=== PATIENT | male | born 1950 | race Caucasian/White ===

== ENCOUNTER 2016-11-07 01:25 | Inpatient (IN) | payer MEDICARE, OTHER ==
[~2016-11-07] VITALS: Ht 180.3 cm; Wt 93.0 kg
[2016-11-07] VITALS (14 sets, daily range): BP systolic 119–159; BP diastolic 72–100; PULSE 98–133; RESP 18–26; TEMP 97.7–98.8; O2SAT 90–96
[~2016-11-07 01:25] MED LIST: ALBU8I INH; AZIT250T74 PO; FLOV44AE IN; LISI-363 PO; NICO21T T-DERMAL; PRED20 PO; Z.0.OXYGENDME NC
--- NOTE | 2016-11-07 01:41 | PD ---
HPI . Respiratory distress Chief Complaint: Respiratory Distress Time Seen by Provider: 01:34 Travel History International Travel<30 days: No Contact w/Intl Traveler<30days: No Traveled to known affect area: No History of Present Illness HPI This patient presents to us by EVAC with the chief complaint of respiratory distress. Onset of symptoms was about noon time. EMS reports that his sats were in the 70s when they got there. He is on home oxygen. He also uses a home nebulizer machine but is out of nebulizer solution. He has been using his MDI. In addition to the shortness of breath, he has green sputum production. He has not been running a fever. He denies any previous history of CHF. [facility] Past Medical History Cardiovascular Problems: Yes COPD: Yes Diminished Hearing: No Hypertension: Yes Musculoskeletal: No Neurologic: No Respiratory: Yes (COPD) Past Surgical History Tonsillectomy: Yes Other Surgery: Yes (SKIN CANCER REMOVED LEFT CHEST) Social History Alcohol Use: Yes (4-5 TIMES PER WEEK, COUPLE MIXED DRINKS) Tobacco Use: Yes (1 / PPD) Substance Use: No Allergies-Medications (Allergen,Severity, Reaction): Coded Allergies: No Known Allergies (Unverified , 10/23/14) Reported Meds & Prescriptions Reported Meds & Active Scripts Active Reported Duoneb (Ipratropium-Albuterol Neb) 0.5-2.5 Mg/3 Ml Neb 1 Nebule INH Q4HR NEB Ventolin Hfa 18 GM Inh (Albuterol Sulfate) 90 Mcg/Act Aer 2 Puff INH Q4-6H PRN Lisinopril 20 Mg Tab 20 Mg PO DAILY Review of Systems Except as stated in HPI: all other systems reviewed are Neg General / Constitutional: No: Fever, Chills Respiratory: Positive: Cough, Shortness of Breath, Wheezing Physical Exam Narrative GENERAL: Awake and alert. SKIN: warm/dry. HEAD: Normocephalic. EYES: Pupils equal and round. No scleral icterus. No injection or drainage. ENT: No nasal bleeding or discharge. Mucous membranes pink and moist. NECK: Trachea midline. Full range of motion without pain.. CARDIOVASCULAR: Regular rate and rhythm. RESPIRATORY: Positive accessory muscle use. Diffuse inspiratory/expiratory wheezing. Very diminished breath sounds. GASTROINTESTINAL: Abdomen soft. Nontender. Bowel sounds present. Nondistended. MUSCULOSKELETAL: No obvious deformities. NEUROLOGICAL: Awake and alert. No obvious cranial nerve deficits. Motor grossly within normal limits. Normal speech. PSYCHIATRIC: Appropriate mood and affect; insight and judgment normal. Data Data Last Documented VS Vital Signs Date Time Temp Pulse Resp B/P (MAP) Pulse Ox O2 Delivery O2 Flow Rate FiO2 11/07/16 01:41 98.7 124 24 150/88 (108) 96 Nasal Cannula 2.00 Orders Orders Complete Blood Count With Diff (11/07/16 01:34) Basic Metabolic Panel (Bmp) (11/07/16 01:34) B-Type Natriuretic Peptide (11/07/16 01:34) Troponin I (11/07/16 01:34) Iv Access Insert/Monitor (11/07/16 01:34) Electrocardiogram (11/07/16 01:34) Ecg Monitoring (11/07/16 01:34) Oximetry (11/07/16 01:34) Oxygen Administration (11/07/16 01:34) Chest, Single Ap (11/07/16 01:34) Sodium Chloride 0.9% Flush (Ns Flush) (11/07/16 01:45) Albuterol-Ipratropium Neb (Duoneb Neb) (11/07/16 01:45) Ondansetron Inj (Zofran Inj) (11/07/16 02:00) Ondansetron Inj (Zofran Inj) (11/07/16 01:50) Albuterol-Ipratropium Neb (Duoneb Neb) (11/07/16 02:30) Ceftriaxone Inj (Rocephin Inj) (11/07/16 02:45) Azithromycin Inj (Zithromax Inj) (11/07/16 02:45) Place In Observation (11/07/16 ) Vital Signs (Adult) Q4H (11/07/16 02:52) Activity Oob With Assistance (11/07/16 02:52) Overhead Garage Door Hanger / Telemetry .CONTINUOUS (11/07/16 02:52) Diet Heart Healthy (11/07/16 Breakfast) Sodium Chloride 0.9% Flush (Ns Flush) (11/07/16 03:00) Sodium Chloride 0.9% Flush (Ns Flush) (11/07/16 09:00) Basic Metabolic Panel (Bmp) (11/08/16 06:00) Complete Blood Count With Diff (11/08/16 06:00) Pt Request For Service (11/07/16 02:52) Case Management Consult (11/07/16 02:52) Naloxone Inj (Narcan Inj) (11/07/16 03:00) Ipratropium Neb (Atrovent Neb) (11/07/16 04:00) Ipratropium Neb (Atrovent Neb) (11/07/16 03:00) Labs Laboratory Tests Test 11/07/16 01:40 White Blood Count 12.9 TH/MM3 Red Blood Count 4.61 MIL/MM3 Hemoglobin 16.8 GM/DL Hematocrit 49.2 % Mean Corpuscular Volume 106.7 FL Mean Corpuscular Hemoglobin 36.4 PG Mean Corpuscular Hemoglobin Concent 34.1 % Red Cell Distribution Width 13.9 % Platelet Count 171 TH/MM3 Mean Platelet Volume 8.6 FL Neutrophils (%) (Auto) 76.8 % Lymphocytes (%) (Auto) 14.5 % Monocytes (%) (Auto) 7.4 % Eosinophils (%) (Auto) 0.9 % Basophils (%) (Auto) 0.4 % Neutrophils # (Auto) 9.9 TH/MM3 Lymphocytes # (Auto) 1.9 TH/MM3 Monocytes # (Auto) 1.0 TH/MM3 Eosinophils # (Auto) 0.1 TH/MM3 Basophils # (Auto) 0.0 TH/MM3 CBC Comment AUTO DIFF Differential Comment AUTO DIFF CONFIRMED Blood Urea Nitrogen 9 MG/DL Creatinine 0.78 MG/DL Random Glucose 148 MG/DL Calcium Level 8.9 MG/DL Sodium Level 129 MEQ/L Potassium Level 4.3 MEQ/L Chloride Level 93 MEQ/L Carbon Dioxide Level 27.4 MEQ/L Anion Gap 9 MEQ/L Estimat Glomerular Filtration Rate 100 ML/MIN Troponin I LESS THAN 0.02 NG/ML B-Type Natriuretic Peptide 107 PG/ML MDM Medical Decision Making Medical Screen Exam Complete: Yes Emergency Medical Condition: Yes Medical Record Reviewed: Yes (medical history of hypertension and COPD. No history of CHF. He is oxygen dependent.) Differential Diagnosis Differential diagnosis of dyspnea includes but is not limited to congestive heart failure, pneumonia, wheezing, pneumothorax, pulmonary embolism Narrative Course This patient presents with the chief complaint of dyspnea. History of COPD. Lungs sound very tight. He was treated en route with Solu-Medrol and one nebulizer treatment. Last Impressions Chest X-Ray 11/07/16 0134 Signed Impressions: Service Date/Time: Monday, November 07, 2016 02:06 - CONCLUSION: 1. Subsegmental airspace disease in the perihilar regions bilaterally. Differential diagnosis includes focal infection or atelectasis and scarring. Followup recommended to assess for clearing. Remote left rib fractures. Jay Membreno MD The chest x-ray was independently viewed by me. Rocephin and Zithromax have subsequently been ordered. CBC & BMP Diagram 11/07/16 01:40 Calcium Level 8.9 Troponin less than 0.02. The patient is improved but not enough for discharge. Diagnosis Primary Impression: COPD (chronic obstructive pulmonary disease) Qualified Codes: J44.1 - Chronic obstructive pulmonary disease with (acute) exacerbation Admitting Information Admitting Physician Requests: Admit Condition: Stable Treasure Hair MD Nov 07, 2016 01:41
[2016-11-07] MEDS ORDERED: IPRASOL INH (01:45)
[2016-11-07] MEDS ORDERED: SODIUM CHLORIDE 0.9% FLUSH 10 ML FLUSH IVF PRN (01:45)
[2016-11-07] MEDS ORDERED: LISI-515 PO (01:45)
[2016-11-07] MEDS ORDERED: VENTAER INH (01:45)
[2016-11-07] MEDS: RESP: ALBUTEROL 2.5 MG/IPRATROPIUM 0.5 MG NEB (SCH) INH ×3 (01:49→02:39)
[2016-11-07] MEDS ORDERED: ONDANSETRON HCL 4 MG/2 ML VIAL ONE (01:50)
[2016-11-07 01:56] LABS: AUTOMATED NEUTROPHIL # 9.9 TH/MM3 (1.8-7.7); BASOPHIL % 0.4 % (0.0-2.0); EOSINOPHIL # 0.1 TH/MM3 (0-0.4); EOSINOPHIL % 0.9 % (0.0-4.0); HEMATOCRIT 49.2 % (39.0-51.0); LYMPH % 14.5 % (9.0-44.0); LYMPHOCYTE # 1.9 TH/MM3 (1.0-4.8); MEAN CELL VOLUME 106.7 FL (80.0-100.0); MEAN CORPUSCULAR HEMOGLOBIN 36.4 PG (27.0-34.0); MEAN CORPUSCULAR HGB CONC 34.1 % (32.0-36.0); MONO % 7.4 % (0.0-8.0); NEUT % 76.8 % (16.0-70.0); PLATELET COUNT 171 TH/MM3 (150-450); RED BLOOD COUNT 4.61 MIL/MM3 (4.50-5.90); RED CELL DISTRIBUTION WIDTH 13.9 % (11.6-17.2); WHITE BLOOD COUNT 12.9 TH/MM3 (4.0-11.0)
[2016-11-07] MEDS ORDERED: ONDANSETRON HCL 4 MG/2 ML VIAL IV PUSH ONE (02:00)
[2016-11-07 02:08] LABS: HEMO FLAGS AUTO DIFF
--- NOTE | 2016-11-07 02:16 | RADRPT ---
EXAM DATE/TIME: 11/07/2016 02:06 [place] COMPARISON: CHEST SINGLE AP, October 23, 2014, 14:30. INDICATIONS : Short of breath. MEDICAL HISTORY : None. SURGICAL HISTORY : None. ENCOUNTER: Initial ACUITY: 2 days PAIN SCORE: 0/10 LOCATION: Bilateral chest FINDINGS: A single view of the chest demonstrates subsegmental airspace disease in the perihilar region bilater ally. No significant effusion. Remote left rib fractures. No pneumothorax. Heart size normal. CONCLUSION: 1. Subsegmental airspace disease in the perihilar regions bilaterally. Differential diagnosis include s focal infection or atelectasis and scarring. Followup recommended to assess for clearing. Remote le ft rib fractures. Jay Membreno MD on November 07, 2016 at 2:12 Board Certified Radiologist. This report was verified electronically.
[2016-11-07 02:21] LABS: ANION GAP 9 MEQ/L (5-15); BICARBONATE 27.4 MEQ/L (21.0-32.0); BLOOD UREA NITROGEN 9 MG/DL (7-18); CHLORIDE 93 MEQ/L (98-107); GLOMERULAR FILTRATION RATE 100 ML/MIN (>89); POTASSIUM 4.3 MEQ/L (3.5-5.1); SODIUM (NA) 129 MEQ/L (136-145)
[2016-11-07] MEDS ORDERED: AZITHROMYCIN INJ 500 MG in SODIUM CHLOR 0.9% 250 ML INJ 250 ML IV ONE (02:45)
[2016-11-07] MEDS ORDERED: cefTRIAXone INJ 2,000 MG in SODIUM CHLORIDE 0.9% INJ 100 ML IV ONE (02:45)
[2016-11-07] MEDS ORDERED: NALOXONE HCL 0.4 MG/ML AMP IV PRN (03:00)
[2016-11-07] MEDS ORDERED: RESP: IPRATROPIUM 0.5 MG/2.5 ML NEB NEB PRN (03:00)
[2016-11-07] MEDS ORDERED: SODIUM CHLORIDE 0.9% FLUSH 10 ML FLUSH IV FLUSH PRN (03:00)
[2016-11-07 03:32] LABS: SCAN/DIFF AUTO DIFF CONFIRMED
[2016-11-07] MEDS: RESP: IPRATROPIUM 0.5 MG/2.5 ML NEB NEB SCH ×4 (03:35→19:35)
--- NOTE | 2016-11-07 04:03 | HHI.HP ---
[facility] Unknown Admission Diagnosis COPD exacerbation, ? perihilar pneumonia Diagnoses: Travel History International Travel<30 Days: No Contact w/Intl Traveler <30 Da: No Traveled to Known Affected Are: No History of Present Illness History from patient, ER physician, medication, and review of medical records. Patient did that he came to the hospital because he has been short of breath. He stated that it has been going on for a few days but it was terribly worse today. He thought that he was given a time. He states he has been coughing a lot as well and that has been worse than his normal baseline cough. He reports he does have some yellow and green color sputum's. Denies fever. Reports of bilateral ankle swelling once in a while which resolved spontaneously. Not on diuretics at home. Patient is on home oxygen. He denies being on BiPAP at home. Patient reports that he was also having some nausea and vomiting. Vomited once at home and twice here. However states it was mostly mucus and clear color. While I am interviewing him, he did have episodes which are more of coughing up clear or whitish sputum rather than vomiting. He denies any abdominal pains. Denies diarrhea. Denies any melena or hematemesis/hematochezia. Review of Systems Except as stated in HPI: all other systems reviewed are Neg Past Family Social History Past Medical History htn copd seizures when I was 14 skin cancer on chest right side- melanoma- no chemo or radiation Past Surgical History skin cancer removal from chest knee surgery for torn cartilage- bilateral tonsilectomy Allergies: Coded Allergies: No Known Allergies (Unverified , 10/23/14) Family History mother and elder brother- dm Social History trying to cut down- still at 1.5 pack a day drinks etoh about 2-3 cocktails a day Physical Exam Vital Signs Vital Signs Date Time Temp Pulse Resp B/P (MAP) Pulse Ox O2 Delivery O2 Flow Rate FiO2 11/07/16 03:20 116 22 143/89 (107) 93 Aerosol Mask 11/07/16 01:41 98.7 124 24 150/88 (108) 96 Nasal Cannula 2.00 11/07/16 01:39 97 Nasal Cannula 2.00 11/07/16 01:34 96 Aerosol Mask 11/07/16 01:29 133 26 159/100 (119) 94 Physical Exam GENERAL: This is a well-nourished, well-developed patient, in moderate distress from work of breathing SKIN: No rashes, ecchymoses or lesions. Cool and dry. HEAD: Atraumatic. Normocephalic. No temporal or scalp tenderness. EYES: No scleral icterus. No injection or drainage. ENT: Nose without bleeding, purulent drainage or septal hematoma. Airway patent. NECK: Trachea midline. No JVD CARDIOVASCULAR: Regular rate and rhythm without murmurs, gallops, or rubs. Positive JVD. RESPIRATORY: Bilateral expiratory wheezing all throughout the lungs. GASTROINTESTINAL: Abdomen soft, non-tender, nondistended. No guarding. MUSCULOSKELETAL: Extremities without clubbing, cyanosis, or edema. . No calf tenderness. NEUROLOGICAL: Awake and alert. Motor and sensory grossly within normal limits. Normal speech. Laboratory Laboratory Tests Test 11/07/16 01:40 White Blood Count 12.9 Red Blood Count 4.61 Hemoglobin 16.8 Hematocrit 49.2 Mean Corpuscular Volume 106.7 Mean Corpuscular Hemoglobin 36.4 Mean Corpuscular Hemoglobin Concent 34.1 Red Cell Distribution Width 13.9 Platelet Count 171 Mean Platelet Volume 8.6 Neutrophils (%) (Auto) 76.8 Lymphocytes (%) (Auto) 14.5 Monocytes (%) (Auto) 7.4 Eosinophils (%) (Auto) 0.9 Basophils (%) (Auto) 0.4 Neutrophils # (Auto) 9.9 Lymphocytes # (Auto) 1.9 Monocytes # (Auto) 1.0 Eosinophils # (Auto) 0.1 Basophils # (Auto) 0.0 CBC Comment AUTO DIFF Differential Comment AUTO DIFF CONFIRMED Blood Urea Nitrogen 9 Creatinine 0.78 Random Glucose 148 Calcium Level 8.9 Sodium Level 129 Potassium Level 4.3 Chloride Level 93 Carbon Dioxide Level 27.4 Anion Gap 9 Estimat Glomerular Filtration Rate 100 Troponin I LESS THAN 0.02 B-Type Natriuretic Peptide 107 Result Diagram: 11/07/16 0140 11/07/16 0140 Imaging Last 48 hours Impressions Chest X-Ray 11/07/16 0134 Signed Impressions: Service Date/Time: Monday, November 07, 2016 02:06 - CONCLUSION: 1. Subsegmental airspace disease in the perihilar regions bilaterally. Differential diagnosis includes focal infection or atelectasis and scarring. Followup recommended to assess for clearing. Remote left rib fractures. MD Shawna Hendricks VTE Risk Assessment Caprini VTE Risk Assessment: Mod/High Risk (score >= 2) Caprini Risk Assessment Model Point Value = 1 Point Value = 2 Point Value = 3 Point Value = 5 Age 41-60 Minor surgery BMI > 25 kg/m2 Swollen legs Varicose veins or History of unexplained or recurrent spontaneous Oral contraceptives or hormone replacement Sepsis (< 1 month) Serious lung disease, including pneumonia (< 1 month) Abnormal pulmonary function Acute myocardial infarction Congestive heart failure (< 1 month) History of inflammatory bowel disease Medical patient at bed rest Age 61-74 Arthroscopic surgery Major open surgery (> 45 min) Laparoscopic surgery (> 45 min) Malignancy Confined to bed (> 72 hours) Immobilizing plaster cast Central venous access Age >= 75 History of VTE Family history of VTE Factor V Leiden Prothrombin [id number] Lupus anticoagulant Anticardiolipin antibodies Elevated serum homocysteine Heparin-induced thrombocytopenia Other congenital or acquired thrombophilia Stroke (< 1 month) Elective arthroplasty Hip, pelvis, or leg fracture Acute spinal cord injury (< 1 month) Prophylaxis Regimen Total Risk Factor Score Risk Level Prophylaxis Regimen 0-1 Low Early ambulation 2 Moderate Order ONE of the following: *Sequential Compression Device (SCD) *Heparin 5000 units SQ BID 3-4 Higher Order ONE of the following medications: *Heparin 5000 units SQ TID *Enoxaparin/Lovenox 40 mg SQ daily (WT < 150 kg, CrCl > 30 mL/min) *Enoxaparin/Lovenox 30 mg SQ daily (WT < 150 kg, CrCl > 10-29 mL/min) *Enoxaparin/Lovenox 30 mg SQ BID (WT < 150 kg, CrCl > 30 mL/min) AND/OR *Sequential Compression Device (SCD) 5 or more Highest Order ONE of the following medications: *Heparin 5000 units SQ TID (Preferred with Epidurals) *Enoxaparin/Lovenox 40 mg SQ daily (WT < 150 kg, CrCl > 30 mL/min) *Enoxaparin/Lovenox 30 mg SQ daily (WT < 150 kg, CrCl > 10-29 mL/min) *Enoxaparin/Lovenox 30 mg SQ BID (WT < 150 kg, CrCl > 30 mL/min) AND *Sequential Compression Device (SCD) Assessment and Plan Problem List: (1) Pneumonia ICD Code: J18.9 - Pneumonia, unspecified organism (2) Hypoxia ICD Code: R09.02 - Hypoxemia (3) COPD (chronic obstructive pulmonary disease) ICD Code: J44.9 - COPD (chronic obstructive pulmonary disease) Status: Acute Assessment and Plan Impression: COPD exacerbation Hypoxemia- requiring about 5 L nasal cannula in ER with O2 sat around 90%. Patient is chronically on home oxygen. He isn't sure whether it's 2 L or not. Pneumonia Mild leukocytosis with left shift htn copd seizures when I was 14 skin cancer on chest right side- melanoma- no chemo or radiation Plan: Solu-Medrol 40 mg IV every 6 hours. Oxygen supplementation. Patient received Rocephin and azithromycin in ER. We'll switch to Levaquin 750 mg IV every 24 hours. Nebulizers scheduled and when necessary. We'll follow clinically. Resume home meds. DVT prophylaxis - with Lovenox. GI prophylaxis on pantoprazole. Discussed Condition With patient, ER MD, nursing staff Physician Certification 2 Midnight Certification Type: Admission for Inpatient Services Order for Inpatient Services The services are ordered in accordance with Medicare regulations or non- Medicare payer requirements, as applicable. In the case of services not specified as inpatient-only, they are appropriately provided as inpatient services in accordance with the 2-midnight benchmark. Estimated LOS (days): 3 days is the estimated time the patient will need to remain in the hospital, assuming treatment plan goals are met and no additional complications. Post-Hospital Plan: Home Problem Qualifiers (1) COPD (chronic obstructive pulmonary disease): Qualified Codes: J44.1 - Chronic obstructive pulmonary disease with (acute) exacerbation Gracia Lynch MD Nov 07, 2016 04:03
[2016-11-07] MEDS ORDERED: methylPREDNISolone SOD SUCC 125 MG/2 ML VIAL IV PUSH ONE (04:15)
[2016-11-07] MEDS: LEVOFLOXACIN 750 MG PREMIX INJ 150 ML IV SCH (08:47)
[2016-11-07] MEDS: PANTOPRAZOLE SOD 40 MG DELAYED RELEASE TAB PO SCH (08:47)
[2016-11-07] MEDS: SODIUM CHLORIDE 0.9% FLUSH 10 ML FLUSH IV FLUSH SCH ×2 (08:49→20:39)
[2016-11-07] MEDS: ENOXAPARIN SODIUM 40 MG/0.4 ML SYRINGE SQ SCH (08:49)
--- NOTE | 2016-11-07 09:13 | HHI.PR ---
Subjective Remarks Follow up COPD exacerbation. Patient still with dyspnea, wheeze. Reporting neck pain, headache. Objective Vitals Vital Signs Date Time Temp Pulse Resp B/P (MAP) Pulse Ox O2 Delivery O2 Flow Rate FiO2 11/07/16 05:53 98.8 108 18 142/82 (102) 96 11/07/16 05:16 114 22 140/84 (102) 91 3.00 11/07/16 04:33 127 22 149/78 (101) 91 Nasal Cannula 3.00 11/07/16 03:20 116 22 143/89 (107) 93 Aerosol Mask 11/07/16 01:41 98.7 124 24 150/88 (108) 96 Nasal Cannula 2.00 11/07/16 01:39 97 Nasal Cannula 2.00 11/07/16 01:34 96 Aerosol Mask 11/07/16 01:29 133 26 159/100 (119) 94 I/O 11/06/16 11/06/16 11/06/16 11/07/16 11/07/16 11/07/16 07:00 15:00 23:00 07:00 15:00 23:00 Intake Total 100 ml Balance 100 ml Intake IV Total 100 ml Result Diagram: 11/07/16 0140 11/07/16 0140 Imaging Last Impressions Chest X-Ray 11/07/16 0134 Signed Impressions: Service Date/Time: Monday, November 07, 2016 02:06 - CONCLUSION: 1. Subsegmental airspace disease in the perihilar regions bilaterally. Differential diagnosis includes focal infection or atelectasis and scarring. Followup recommended to assess for clearing. Remote left rib fractures. Jay Membreno MD Objective Remarks General: Appears uncomfortable. Heart: Regular rate and rhythm. No murmur. Lungs: Diffuse wheezing. Breathing is moderately labored. Abdomen: Soft, nontender, nondistended. Extremities: No lower extremity edema. Psych: Alert and oriented. Procedures None Urinary Catheter: No Vascular Central Line Catheter: No A/P Problem List: (1) Hypoxia ICD Code: R09.02 - Hypoxemia (2) COPD (chronic obstructive pulmonary disease) ICD Code: J44.9 - COPD (chronic obstructive pulmonary disease) Status: Acute Assessment and Plan 1. COPD exacerbation: Continue supplemental oxygen, bronchodilators, steroids, antibiotics. 2. Neck pain, headache: Add Lortab. 3. Hypertension: Restart lisinopril. 4. DVT prophylaxis: Lovenox. 5. GI prophylaxis: Pantoprazole. Problem Qualifiers (1) COPD (chronic obstructive pulmonary disease): Qualified Codes: J44.1 - Chronic obstructive pulmonary disease with (acute) exacerbation Bryan Fierro MD Nov 07, 2016 09:13
[2016-11-07] MEDS: ACETAMINOPHEN/HYDROcodone 325 MG/5 MG TAB PO PRN ×2 (09:51→20:41)
[2016-11-07] MEDS: LISINOPRIL 20 MG TAB PO SCH (09:51)
[2016-11-07] MEDS: methylPREDNISolone SOD SUCC 40 MG/1 ML VIAL IV PUSH SCH ×3 (10:38→21:17)
[2016-11-07] MEDS: DILTIAZEM HCL 30 MG TAB PO SCH ×3 (12:51→20:39)
--- NOTE | 2016-11-07 14:02 | EKG ---
Date Performed: 11/07/2016 Time Performed: 01:55:44 PTAGE: 66 years EKG: SINUS TACHYCARDIA BORDERLINE RIGHT AXIS DEVIATION ABNORMAL RHYTHM ECG Compared to prior tra cing no significant change PREVIOUS TRACING : 10/23/2014 14.11 DOCTOR: Noa Roberts Interpretating Date/Time 11/07/2016 13:56:49
[2016-11-08] VITALS (11 sets, daily range): BP systolic 108–126; BP diastolic 57–82; PULSE 72–101; RESP 16–22; TEMP 97.6–98.2; O2SAT 90–92
[2016-11-08] MEDS: methylPREDNISolone SOD SUCC 40 MG/1 ML VIAL IV PUSH SCH ×4 (03:25→21:21)
[2016-11-08] MEDS: RESP: IPRATROPIUM 0.5 MG/2.5 ML NEB NEB SCH ×4 (03:40→19:48)
[2016-11-08] MEDS: PANTOPRAZOLE SOD 40 MG DELAYED RELEASE TAB PO SCH (09:26)
[2016-11-08] MEDS: SODIUM CHLORIDE 0.9% FLUSH 10 ML FLUSH IV FLUSH SCH ×2 (09:27→20:39)
[2016-11-08] MEDS: LEVOFLOXACIN 750 MG PREMIX INJ 150 ML IV SCH (09:27)
[2016-11-08] MEDS: DILTIAZEM HCL 30 MG TAB PO SCH ×4 (09:27→20:38)
[2016-11-08] MEDS: ENOXAPARIN SODIUM 40 MG/0.4 ML SYRINGE SQ SCH (09:27)
[2016-11-08] MEDS: LISINOPRIL 20 MG TAB PO SCH (09:27)
--- NOTE | 2016-11-08 11:12 | HHI.PR ---
Subjective Remarks Follow-up COPD exacerbation. Patient states that his breathing is improving. Still short of breath and wheezing. Denies chest pain, nausea, vomiting, diarrhea. Objective Vitals Vital Signs Date Time Temp Pulse Resp B/P (MAP) Pulse Ox O2 Delivery O2 Flow Rate FiO2 11/08/16 08:50 92 Nasal Cannula 3.00 11/08/16 07:18 97.6 93 16 126/82 (97) 92 11/08/16 04:32 97.7 92 20 118/81 (93) 92 11/08/16 01:10 98.2 92 18 108/57 (74) 90 11/07/16 21:38 98.3 98 22 119/72 (88) 92 11/07/16 21:17 20 11/07/16 19:44 98 11/07/16 19:36 93 Nasal Cannula 3.00 11/07/16 17:26 97.7 120 18 152/84 (106) 90 11/07/16 15:49 94 Nasal Cannula 4.00 11/07/16 13:07 98.3 126 18 129/96 (107) 90 I/O 11/07/16 11/07/16 11/07/16 11/08/16 11/08/16 11/08/16 07:00 15:00 23:00 07:00 15:00 23:00 Intake Total 100 ml Output Total 450 ml 350 ml Balance 100 ml -450 ml -350 ml Intake IV Total 100 ml Output Urine Total 450 ml 350 ml Result Diagram: 11/07/16 0140 11/07/16 0140 Imaging Last Impressions Chest X-Ray 11/07/16 0134 Signed Impressions: Service Date/Time: Monday, November 07, 2016 02:06 - CONCLUSION: 1. Subsegmental airspace disease in the perihilar regions bilaterally. Differential diagnosis includes focal infection or atelectasis and scarring. Followup recommended to assess for clearing. Remote left rib fractures. Jay Membreno MD Objective Remarks General: No acute distress. Heart: Regular rate and rhythm. No murmur. Lungs: Scattered wheezing. Breathing is moderately labored. Abdomen: Soft, nontender, nondistended. Extremities: No lower extremity edema. Psych: Alert and oriented. Procedures None Urinary Catheter: No Vascular Central Line Catheter: No A/P Problem List: (1) Hypoxia ICD Code: R09.02 - Hypoxemia (2) COPD (chronic obstructive pulmonary disease) ICD Code: J44.9 - COPD (chronic obstructive pulmonary disease) Status: Acute Assessment and Plan 1. COPD exacerbation: Continue supplemental oxygen, bronchodilators, steroids, antibiotics. Improving. 2. Neck pain, headache: Continue Lortab as needed. 3. Hypertension: Continue lisinopril. Blood pressure is well controlled. 4. DVT prophylaxis: Lovenox. 5. GI prophylaxis: Pantoprazole. Discharge Planning Possible discharge home next 1-2 days pending further clinical improvement. Problem Qualifiers (1) COPD (chronic obstructive pulmonary disease): Qualified Codes: J44.1 - Chronic obstructive pulmonary disease with (acute) exacerbation Bryan Fierro MD Nov 08, 2016 11:12
[2016-11-08 15:16] LABS: BASOPHIL % 0.2 % (0.0-2.0); HEMATOCRIT 45.1 % (39.0-51.0); HEMO FLAGS DIFF FINAL; LYMPH % 3.3 % (9.0-44.0); LYMPHOCYTE # 0.5 TH/MM3 (1.0-4.8); MEAN CELL VOLUME 107.7 FL (80.0-100.0); MEAN CORPUSCULAR HEMOGLOBIN 36.4 PG (27.0-34.0); MEAN CORPUSCULAR HGB CONC 33.8 % (32.0-36.0); MONO % 2.2 % (0.0-8.0); NEUT % 94.3 % (16.0-70.0); PLATELET COUNT 154 TH/MM3 (150-450); RED BLOOD COUNT 4.18 MIL/MM3 (4.50-5.90); RED CELL DISTRIBUTION WIDTH 13.8 % (11.6-17.2); WHITE BLOOD COUNT 13.8 TH/MM3 (4.0-11.0)
[2016-11-08 15:31] LABS: BICARBONATE 29.3 MEQ/L (21.0-32.0); POTASSIUM 4.4 MEQ/L (3.5-5.1)
[2016-11-08] MEDS: ACETAMINOPHEN/HYDROcodone 325 MG/5 MG TAB PO PRN (20:38)
[2016-11-09] VITALS (9 sets, daily range): BP systolic 108–142; BP diastolic 69–80; PULSE 75–103; RESP 15–22; TEMP 97.4–97.8; O2SAT 89–97
[2016-11-09] MEDS: methylPREDNISolone SOD SUCC 40 MG/1 ML VIAL IV PUSH SCH ×3 (03:59→21:03)
[2016-11-09 06:16] LABS: AUTOMATED NEUTROPHIL # 8.3 TH/MM3 (1.8-7.7); HEMATOCRIT 43.3 % (39.0-51.0); HEMO FLAGS DIFF FINAL; LYMPH % 4.4 % (9.0-44.0); LYMPHOCYTE # 0.4 TH/MM3 (1.0-4.8); MEAN CELL VOLUME 106.8 FL (80.0-100.0); MEAN CORPUSCULAR HEMOGLOBIN 36.3 PG (27.0-34.0); MONO % 2.4 % (0.0-8.0); NEUT % 93.2 % (16.0-70.0); PLATELET COUNT 123 TH/MM3 (150-450); RED BLOOD COUNT 4.06 MIL/MM3 (4.50-5.90); RED CELL DISTRIBUTION WIDTH 13.7 % (11.6-17.2); WHITE BLOOD COUNT 8.9 TH/MM3 (4.0-11.0)
[2016-11-09 06:42] LABS: BICARBONATE 29.9 MEQ/L (21.0-32.0); POTASSIUM 4.1 MEQ/L (3.5-5.1)
--- NOTE | 2016-11-09 09:49 | HHI.PR ---
Subjective Remarks Follow-up COPD exacerbation. Patient feels somewhat better today. Still with dyspnea, wheeze. No chest pain. Objective Vitals Vital Signs Date Time Temp Pulse Resp B/P (MAP) Pulse Ox O2 Delivery O2 Flow Rate FiO2 11/09/16 07:31 97.8 96 15 140/77 (98) 90 11/09/16 04:48 97.6 75 20 127/79 (95) 91 11/09/16 01:38 97.5 84 22 108/69 (82) 92 11/08/16 22:36 90 11/08/16 22:04 16 11/08/16 20:45 97.7 76 22 125/71 (89) 92 11/08/16 19:48 92 Nasal Cannula 4.00 11/08/16 16:32 97.8 90 16 115/73 (87) 92 11/08/16 13:33 97.6 79 16 120/80 (93) 92 11/08/16 12:00 101 I/O 11/08/16 11/08/16 11/08/16 11/09/16 11/09/16 11/09/16 07:00 15:00 23:00 07:00 15:00 23:00 Output Total 350 ml 900 ml Balance -350 ml -900 ml Output Urine Total 350 ml 900 ml # Voids 1 Result Diagram: 11/09/16 0542 11/09/16 0542 Imaging Last Impressions Chest X-Ray 11/07/16 0134 Signed Impressions: Service Date/Time: Monday, November 07, 2016 02:06 - CONCLUSION: 1. Subsegmental airspace disease in the perihilar regions bilaterally. Differential diagnosis includes focal infection or atelectasis and scarring. Followup recommended to assess for clearing. Remote left rib fractures. Jay Membreno MD Objective Remarks General: No acute distress. Heart: Regular rate and rhythm. No murmur. Lungs: Scattered wheezing. Breathing is moderately labored. Abdomen: Soft, nontender, nondistended. Extremities: No lower extremity edema. Psych: Alert and oriented. Procedures None Urinary Catheter: No Vascular Central Line Catheter: No A/P Problem List: (1) Hypoxia ICD Code: R09.02 - Hypoxemia (2) COPD (chronic obstructive pulmonary disease) ICD Code: J44.9 - COPD (chronic obstructive pulmonary disease) Status: Acute Assessment and Plan 1. COPD exacerbation: Continue supplemental oxygen, bronchodilators, steroids, antibiotics. Improving slowly. 2. Neck pain, headache: Continue Lortab as needed. 3. Hypertension: Continue lisinopril. Blood pressure is well controlled. 4. DVT prophylaxis: Lovenox. 5. GI prophylaxis: Pantoprazole. 6. Hyperglycemia: Secondary to steroids. Monitor Accu-Cheks and cover with sliding scale insulin. Discharge Planning Possible discharge home next 1-2 days pending further clinical improvement. Problem Qualifiers (1) COPD (chronic obstructive pulmonary disease): Qualified Codes: J44.1 - Chronic obstructive pulmonary disease with (acute) exacerbation Bryan Fierro MD Nov 09, 2016 09:49
[2016-11-09] MEDS ORDERED: GLUCAGON 1 MG/ML VIAL OTHER PRN (10:00)
[2016-11-09] MEDS ORDERED: DEXTROSE 50% IN WATER 50 ML VIAL(D50) IV PRN (10:00)
[2016-11-09] MEDS: PANTOPRAZOLE SOD 40 MG DELAYED RELEASE TAB PO SCH (10:22)
[2016-11-09] MEDS: LISINOPRIL 20 MG TAB PO SCH (10:22)
[2016-11-09] MEDS: SODIUM CHLORIDE 0.9% FLUSH 10 ML FLUSH IV FLUSH SCH ×3 (10:22→21:02)
[2016-11-09] MEDS: DILTIAZEM HCL 30 MG TAB PO SCH ×4 (10:23→20:30)
[2016-11-09] MEDS: LEVOFLOXACIN 750 MG PREMIX INJ 150 ML IV SCH (10:23)
[2016-11-09] MEDS: ENOXAPARIN SODIUM 40 MG/0.4 ML SYRINGE SQ SCH (10:27)
[2016-11-09] MEDS: RESP: IPRATROPIUM 0.5 MG/2.5 ML NEB NEB SCH ×3 (10:36→22:13)
[2016-11-09] MEDS: INSULIN ASPART SUPPLEMENTAL SCALE SQ SCH ×3 (13:34→21:03)
[2016-11-09] MEDS: ACETAMINOPHEN/HYDROcodone 325 MG/5 MG TAB PO PRN (20:30)
[2016-11-10] VITALS (12 sets, daily range): BP systolic 118–143; BP diastolic 71–86; PULSE 68–97; RESP 18–20; TEMP 97.5–98.2; O2SAT 91–94
[2016-11-10] MEDS: RESP: IPRATROPIUM 0.5 MG/2.5 ML NEB NEB SCH ×4 (03:20→21:29)
[2016-11-10] MEDS: INSULIN ASPART SUPPLEMENTAL SCALE SQ SCH ×4 (08:00→21:00)
[2016-11-10] MEDS: DILTIAZEM HCL 30 MG TAB PO SCH ×4 (08:12→20:21)
[2016-11-10] MEDS: PANTOPRAZOLE SOD 40 MG DELAYED RELEASE TAB PO SCH (08:12)
[2016-11-10] MEDS: LISINOPRIL 20 MG TAB PO SCH (08:12)
[2016-11-10] MEDS: LEVOFLOXACIN 750 MG PREMIX INJ 150 ML IV SCH (08:12)
[2016-11-10] MEDS: methylPREDNISolone SOD SUCC 40 MG/1 ML VIAL IV PUSH SCH ×2 (08:13→20:22)
[2016-11-10] MEDS: ENOXAPARIN SODIUM 40 MG/0.4 ML SYRINGE SQ SCH (08:13)
[2016-11-10] MEDS: SODIUM CHLORIDE 0.9% FLUSH 10 ML FLUSH IV FLUSH SCH ×2 (08:13→20:21)
--- NOTE | 2016-11-10 12:55 | HHI.PR ---
Subjective Remarks Follow up COPD exacerbation. Patient is feeling a little better. Still with wheezing and dyspnea. Requiring 4L oxygen. States that he uses 3L at home. No chest pain. Objective Vitals Vital Signs Date Time Temp Pulse Resp B/P (MAP) Pulse Ox O2 Delivery O2 Flow Rate FiO2 11/10/16 12:14 98.1 72 19 123/79 (94) 92 11/10/16 11:10 91 Nasal Cannula 4.00 11/10/16 08:07 97.5 81 20 132/86 (101) 92 11/10/16 08:00 97 11/10/16 05:39 97.7 84 20 124/76 (92) 92 11/10/16 03:54 97.6 75 20 119/74 (89) 92 11/10/16 03:44 72 11/09/16 22:17 93 Nasal Cannula 4.00 11/09/16 21:31 16 11/09/16 21:16 97.4 76 20 142/80 (100) 92 11/09/16 15:03 97.8 86 16 129/78 (95) 97 I/O 11/09/16 11/09/16 11/09/16 11/10/16 11/10/16 11/10/16 07:00 15:00 23:00 07:00 15:00 23:00 Intake Total 150 ml Output Total 900 ml 925 ml Balance -900 ml -925 ml 150 ml Intake IV Total 150 ml Output Urine Total 900 ml 925 ml Result Diagram: 11/09/16 0542 11/09/16 0542 Imaging Last Impressions Chest X-Ray 11/07/16 0134 Signed Impressions: Service Date/Time: Monday, November 07, 2016 02:06 - CONCLUSION: 1. Subsegmental airspace disease in the perihilar regions bilaterally. Differential diagnosis includes focal infection or atelectasis and scarring. Followup recommended to assess for clearing. Remote left rib fractures. Jay Membreno MD Objective Remarks General: No acute distress. Heart: Regular rate and rhythm. No murmur. Lungs: Scattered wheezing. Breathing is somewhat labored. Abdomen: Soft, nontender, nondistended. Extremities: No lower extremity edema. Psych: Alert and oriented. Procedures None Urinary Catheter: No Vascular Central Line Catheter: No A/P Problem List: (1) Hypoxia ICD Code: R09.02 - Hypoxemia (2) COPD (chronic obstructive pulmonary disease) ICD Code: J44.9 - COPD (chronic obstructive pulmonary disease) Status: Acute Assessment and Plan 1. COPD exacerbation: Continue supplemental oxygen, bronchodilators, steroids, antibiotics. Improving slowly. 2. Neck pain, headache: Continue Lortab as needed. 3. Hypertension: Continue lisinopril. Blood pressure is well controlled. 4. DVT prophylaxis: Lovenox. 5. GI prophylaxis: Pantoprazole. 6. Hyperglycemia: Secondary to steroids. Monitor Accu-Cheks and cover with sliding scale insulin. Discharge Planning Probable discharge home next 1-2 days pending further clinical improvement. Patient states that he has oxygen at home. Problem Qualifiers (1) COPD (chronic obstructive pulmonary disease): Qualified Codes: J44.1 - Chronic obstructive pulmonary disease with (acute) exacerbation Bryan Fierro MD Nov 10, 2016 12:55
[2016-11-10] MEDS: ACETAMINOPHEN/HYDROcodone 325 MG/5 MG TAB PO PRN (20:21)
[2016-11-11] MEDS: RESP: IPRATROPIUM 0.5 MG/2.5 ML NEB NEB SCH ×2 (03:15→11:10)
[2016-11-11 03:54] VITALS: BP 122/78; PULSE 79; RESP 17; TEMP 98.3; O2SAT 96
[2016-11-11 08:00] VITALS: BP 149/97; PULSE 78; RESP 18; TEMP 96; O2SAT 93
[2016-11-11] MEDS: INSULIN ASPART SUPPLEMENTAL SCALE SQ SCH ×3 (08:00→16:54)
[2016-11-11] MEDS: PANTOPRAZOLE SOD 40 MG DELAYED RELEASE TAB PO SCH (08:51)
[2016-11-11] MEDS: DILTIAZEM HCL 30 MG TAB PO SCH ×2 (08:51→11:53)
[2016-11-11] MEDS: ENOXAPARIN SODIUM 40 MG/0.4 ML SYRINGE SQ SCH (08:51)
[2016-11-11] MEDS: LISINOPRIL 20 MG TAB PO SCH (08:51)
[2016-11-11] MEDS: methylPREDNISolone SOD SUCC 40 MG/1 ML VIAL IV PUSH SCH (08:52)
[2016-11-11] MEDS: LEVOFLOXACIN 750 MG PREMIX INJ 150 ML IV SCH (08:55)
[2016-11-11] MEDS: SODIUM CHLORIDE 0.9% FLUSH 10 ML FLUSH IV FLUSH SCH (08:55)
[2016-11-11 09:12] VITALS: PULSE 83
[2016-11-11 12:00] VITALS: BP 128/83; PULSE 65; RESP 18; TEMP 96.1; O2SAT 93
--- NOTE | 2016-11-11 13:49 | HHI.FF ---
Face to Face Verification Diagnosis: (1) COPD (chronic obstructive pulmonary disease) Physical Therapy Order: Evaluate and Treat Home Health Nursing Order: Oxygen administration education Nursing assessment with vital signs Facility Sales And Admin Order: To Provide: Long range planning I have seen patient Ras Neville on 11/11/16. My clinical findings support the need for the requested home health care services because: Deconditioned w/ increased weakness I certify that my clinical findings support that this patient is homebound because: Hx COPD- exertion dyspnea/weakness Haider Graves MD Nov 11, 2016 13:49
[2016-11-11] MEDS ORDERED: WALKER WHEELS/F1 MIS (13:50)
[2016-11-11] MEDS ORDERED: PRED10 PO (13:53)
[2016-11-11] MEDS ORDERED: LEVO750T3 PO (13:55)
[2016-11-11] MEDS ORDERED: predniSONE 20 MG TAB PO ONE (14:00)
--- NOTE | 2016-11-11 14:06 | HHI.PR ---
Subjective Remarks Patient seen today around noon. Says he is feeling better. Would like to go home. Says he has power. Says that he has 3 L of oxygen by nasal cannula at home. Objective Vital Signs Date Time Temp Pulse Resp B/P (MAP) Pulse Ox O2 Delivery O2 Flow Rate FiO2 11/11/16 12:00 96.1 65 18 128/83 (98) 93 11/11/16 09:12 83 11/11/16 08:00 96.0 78 18 149/97 (114) 93 11/11/16 03:54 98.3 79 17 122/78 (93) 96 11/10/16 23:30 97.8 73 18 143/83 (103) 93 11/10/16 23:27 68 11/10/16 21:34 16 11/10/16 21:29 94 Nasal Cannula 4.00 11/10/16 20:50 98.2 76 18 134/71 (92) 93 11/10/16 16:35 98.2 74 18 118/77 (91) 93 I/O 11/10/16 11/10/16 11/10/16 11/11/16 11/11/16 11/11/16 07:00 15:00 23:00 07:00 15:00 23:00 Intake Total 150 ml 900 ml Output Total 925 ml 1250 ml Balance -925 ml 150 ml -350 ml Intake Oral 750 ml IV Total 150 ml 150 ml Output Urine Total 925 ml 1250 ml Result Diagram: 11/09/16 0542 11/09/16 0542 Objective Remarks GENERAL: Patient sitting up in bed. Appears comfortable. Alert and oriented 3. SKIN: Warm and dry. HEAD: Normocephalic. EYES: No scleral icterus. No injection or drainage. NECK: Supple, trachea midline. No JVD or lymphadenopathy. CARDIOVASCULAR: Regular rate and rhythm without murmurs, gallops, or rubs. RESPIRATORY: Breath sounds equal bilaterally. No accessory muscle use. GASTROINTESTINAL: Abdomen soft, non-tender, nondistended. MUSCULOSKELETAL: No cyanosis, or edema. BACK: Nontender without obvious deformity. No CVA tenderness. A/P Assessment and Plan //COPD exacerbation: Continue supplemental oxygen, bronchodilators, steroids, antibiotics. Improved. -11/11. Much improved. 95% on 4 L nasal cannula. We'll discharge home on 3 L nasal cannula. Has 3 L nasal cannula at home. Levaquin to complete treatment course, steroid taper. Follow-up with primary care as outpatient. // Neck pain, headache: Resolved. // Hypertension: Continue lisinopril. Blood pressure is well controlled. //Hyperglycemia: Secondary to steroids. Monitor Accu-Cheks and cover with sliding scale insulin. = 11/11. Continue as steroid tapers. //DVT prophylaxis: Lovenox. // GI prophylaxis: Pantoprazole. Haider Graves MD Nov 11, 2016 14:06
--- NOTE | 2016-11-11 14:10 | HHI.DS ---
Discharge Summary Admission Date Nov 07, 2016 at 02:53 Discharge Date: Nov 11, 2016 Admitting Diagnosis COPD exacerbation, ? perihilar pneumonia (1) Hypoxia ICD Code: R09.02 - Hypoxemia (2) COPD (chronic obstructive pulmonary disease) ICD Code: J44.9 - COPD (chronic obstructive pulmonary disease) Status: Acute Procedures None Brief History - From Admission History from patient, ER physician, medication, and review of medical records. Patient did that he came to the hospital because he has been short of breath. He stated that it has been going on for a few days but it was terribly worse today. He thought that he was given a time. He states he has been coughing a lot as well and that has been worse than his normal baseline cough. He reports he does have some yellow and green color sputum's. Denies fever. Reports of bilateral ankle swelling once in a while which resolved spontaneously. Not on diuretics at home. Patient is on home oxygen. He denies being on BiPAP at home. Patient reports that he was also having some nausea and vomiting. Vomited once at home and twice here. However states it was mostly mucus and clear color. While I am interviewing him, he did have episodes which are more of coughing up clear or whitish sputum rather than vomiting. He denies any abdominal pains. Denies diarrhea. Denies any melena or hematemesis/hematochezia. CBC/BMP: 11/09/16 0542 11/09/16 0542 Significant Findings Laboratory Tests Test 11/08/16 14:50 11/09/16 05:42 White Blood Count 13.8 TH/MM3 (4.0-11.0) Red Blood Count 4.18 MIL/MM3 (4.50-5.90) 4.06 MIL/MM3 (4.50-5.90) Mean Corpuscular Volume 107.7 FL (80.0-100.0) 106.8 FL (80.0-100.0) Mean Corpuscular Hemoglobin 36.4 PG (27.0-34.0) 36.3 PG (27.0-34.0) Neutrophils (%) (Auto) 94.3 % (16.0-70.0) 93.2 % (16.0-70.0) Lymphocytes (%) (Auto) 3.3 % (9.0-44.0) 4.4 % (9.0-44.0) Neutrophils # (Auto) 13.0 TH/MM3 (1.8-7.7) 8.3 TH/MM3 (1.8-7.7) Lymphocytes # (Auto) 0.5 TH/MM3 (1.0-4.8) 0.4 TH/MM3 (1.0-4.8) Random Glucose 228 MG/DL (74-106) 161 MG/DL (74-106) Sodium Level 131 MEQ/L (136-145) 135 MEQ/L (136-145) Chloride Level 96 MEQ/L (98-107) 97 MEQ/L (98-107) Estimat Glomerular Filtration Rate 84 ML/MIN (>89) Platelet Count 123 TH/MM3 (150-450) Hospital Course Admission x-ray with subsegmental airspace disease. Hilar regions bilaterally. Patient was started on broad-spectrum antibiotics, duo nebs, IV steroids with improvement. Patient back down to 3 L nasal cannula which is baseline. Asked to go home. We'll discharge home with Levaquin to complete treatment course, as well as prednisone taper. Patient will follow-up with PCP, with repeat chest x-ray within 1 week to assess for clearing. //COPD exacerbation: Continue supplemental oxygen, bronchodilators, steroids, antibiotics. Improved. -11/11. Much improved. 95% on 4 L nasal cannula. We'll discharge home on 3 L nasal cannula. Has 3 L nasal cannula at home. Levaquin to complete treatment course, steroid taper. Follow-up with primary care as outpatient. // Neck pain, headache: Resolved. // Hypertension: Continue lisinopril. Blood pressure is well controlled. //Hyperglycemia: Secondary to steroids. Monitor Accu-Cheks and cover with sliding scale insulin. = 11/11. Continue as steroid tapers. //DVT prophylaxis: Lovenox. // GI prophylaxis: Pantoprazole. Pt Condition on Discharge: Good Discharge Disposition: Disch w/ Home Health Serv Discharge Time: > 30 minutes Discharge Instructions DIET: Follow Instructions for: Heart Healthy Diet, Diabetic Diet Activities you can perform: Regular-No Restrictions Other Activity Instructions: 3L oxygen continuous via [place] Follow up Referrals: PCP Follow-up - 1 Week Pulmonology - 1 Week New Medications: Levofloxacin (Levofloxacin) 750 Mg Tablet 750 MG PO DAILY for Infection for 5 Days, #5 TAB 0 Refills Prednisone (Prednisone) 10 Mg Tab 10 MG PO DIRECTED for COPD, #21 TAB 0 Refills Take 40mg daily for 3 days; 20mg daily for 3 days; 10mg daily for 3 days, then stop. Walker with Front Wheels (Walker with Front Wheels) 1 Mis Mis EA .ROUTE DIRECTED, #1 0 Refills Continued Medications: Albuterol 18 GM Inh (Ventolin Hfa 18 GM Inh) 90 Mcg/Act Aer 2 PUFF INH Q4-6H PRN for SHORTNESS OF BREATH, #1 INHALER 0 Refills Ipratropium-Albuterol Neb (Duoneb) 0.5-2.5 Mg/3 Ml Neb 1 NEBULE INH Q4HR NEB for SHORTNESS OF BREATH, #120 NEBULE 0 Refills Lisinopril (Lisinopril) 20 Mg Tab 20 MG PO DAILY, #30 TAB 0 Refills Haider Graves MD Nov 11, 2016 14:10
[2016-11-12] MEDS ORDERED: predniSONE 20 MG TAB PO SCH (09:00)
== END 2016-11-11 17:02 | disposition home or self-care (01) | DRG 190 ==
LOC: NEPC 01:25 → NEDA 02:53 → OBSVTOIN 02:53 → INTOOBSV 02:53 → UNDOADMIN 03:16 → NEDA 03:16 → NEPHCDU 05:43 → N06A 11-11 07:52
PROVIDERS: ADMIT Internal Medicine; ATTEND Internal Medicine
DX: J44.0 Chronic obstructive pulmonary disease with (acute) lower respiratory infection (principal); J18.9 Pneumonia, unspecified organism; Z99.81 Dependence on supplemental oxygen; S22.32XA Fracture of one rib, left side, initial encounter for closed fracture; J44.1 Chronic obstructive pulmonary disease with (acute) exacerbation; R09.02 Hypoxemia; M54.2 Cervicalgia; I10 Essential (primary) hypertension; T38.0X5A Adverse effect of glucocorticoids and synthetic analogues, initial encounter; R73.9 Hyperglycemia, unspecified; F17.210 Nicotine dependence, cigarettes, uncomplicated; Z85.820 Personal history of malignant melanoma of skin; X58.XXXA Exposure to other specified factors, initial encounter; Y92.9 Unspecified place or not applicable
CPT/HCPCS: 71010; 80048; 82948; 83880; 84484; 85025; 93005; 94640; 94664; 96374; J0456; J0696; J1650; J1815; J1956; J2405; J2920; J2930; J7050; J7512; J7644